=== PATIENT | male | born 1975 | race American Indian/Alaskan Native ===

== ENCOUNTER 2019-05-05 06:55 | Inpatient (IN) | payer OTHER ==
[2019-05-05] MEDS ORDERED: IBUPROFEN 800 MG TAB PO ONE (08:10)
--- NOTE | 2019-05-05 08:11 | Emergency Department Report ---
Minor Respiratory - HPI Chief Complaint: Fever Stated Complaint: FEVER UNABLE TO EAT Time Seen by Provider: 05/05/19 07:36 Duration: 5 Days Pain Location: Chest Severity: moderate Minor Respiratory: Yes Cough, Yes Fever (Chills), No Rhinorrhea, No Sore Throat, No Able to Tolerate Fluids, No Ear Pain, No Sick Contacts, No Hemoptysis, No Chest Pain, No Shortness of Breath Other History: Mr. Puentes is a 43-year-old -[place]ian male who comes to the ER reporting fever and chills since . He also endorses vomiting and poor p.o. intake. Patient also reports generalized weakness. He has a cough. He is ill appearing with bilateral conjunct. injectates on exam. He denies chest pain or shortness of breath. He denies any recent travel or known exposure to someone with illness. He is single, with both adult and young children. He has no history of HIV or other medical illness. He denies previous surgery. He denies taking any home medications daily. He has no primary care doctor. He does endorse cigarette smoking. His mother and father are alive and well. Patient symptoms began last he states that he thought he just had a cold from working outside at his job. However, the symptoms of gotten worse the fevers got more bothersome he says he will be fine 1 minute and then soaking wet and sweats the next. So he presented to the ER today. ED Review of Systems ROS: Stated complaint: FEVER UNABLE TO EAT Other details as noted in HPI Comment: All other systems reviewed and negative ED Past Medical Hx - Past Medical History Previous Medical History?: No - Surgical History Past Surgical History?: No - Family History Family history: no significant - Social History Smoking Status: Current Every Day Smoker Substance Use Type: None - Medications Home Medications: Home Medications Medication Instructions Recorded Confirmed Last Taken Type No Known Home Medications [No 05/05/19 05/05/19 Unknown History Reported Home Medications] Minor Respiratory Exam - Exam General: Vital signs noted. No distress. Alert and acting appropriately. HEENT: Yes Pharyngeal Erythema, Yes Rhinorrhea, Yes Conjuctival Injection, No Pharyngeal Exudates, No Moist Mucous Membranes, No Frontal Tenderness, No Maxillary Tenderness Ear: Neither TM Bulge, Neither TM Erythema, Neither EAC Pain, Neither EAC Discharge Neck: Yes Supple, No Adenopathy Lungs: Yes Good Air Exchange, Yes Ronchi, Yes Cough, No Wheezes, No Stridor, No Labored Respirations, No Retractions, No Use of Accessory Muscles, No Other Abnormal Lung Sounds Heart: Yes Regular, No Murmur Abdomen: Yes Normal Bowel Sounds, No Tenderness, No Peritoneal Signs Skin: No Rash, No Edema Neurologic: Alert and oriented, no deficits. Musculoskeletal: Unremarkable. ED Course Vital Signs 05/05/19 07:03 Temperature 98.9 F Pulse Rate 100 H Respiratory 16 Rate Blood Pressure 132/88 [Right] O2 Sat by Pulse 97 Oximetry ED Medical Decision Making - Lab Data Result diagrams: 05/05/19 09:04 05/05/19 09:04 - Radiology Data Radiology results: report reviewed, image reviewed interpreted by me: Multifocal pneumonia Multifocal pneumonia - Medical Decision Making Labs 05/05/19 05/05/19 05/05/19 09:04 09:04 Unknown WBC 7.4 RBC 4.55 Hgb 14.7 Hct 43.2 MCV 95 H MCH 32 MCHC 34 RDW 14.5 Plt Count 251 [place] % ([employer] Sodium 131 L Potassium 4.3 Chloride 93.7 L Carbon Dioxide 19 L Anion Gap 23 BUN 11 Creatinine 1.0 Estimated GFR > 60 BUN/Creatinine Ratio 11 Glucose 114 H Calcium 8.9 Total Bilirubin 0.60 AST 53 H ALT 46 Alkaline Phosphatase 109 Total Protein 7.6 Albumin 3.4 L Albumin/Globulin Ratio 0.8 Influenza A (Rapid) Negative Influenza B (Rapid) Negative Vital Signs 05/05/19 07:03 Temperature 98.9 F Pulse Rate 100 H Respiratory 16 Rate Blood Pressure 132/88 [Right] O2 Sat by Pulse 97 Oximetry Chest x-ray noted. Labs completed and noted. Influenza negative. Staffed patient with Dr. Lex HIGH. Patient has been medicated with normal saline per sepsis protocol. Rocephin and azithromycin to be given IV. Lactate is pending. Blood cultures and UA with culture are pending. Discussed case with Dr. Juan, patient will be admitted to the hospital for f urther evaluation and management of his multifocal pneumonia. Patient has been updated on plan of care and is in agreement. - Differential Diagnosis Rule out influenza, pneumonia Critical care attestation.: If time is entered above; I have spent that time in minutes in the direct care of this critically ill patient, excluding procedure time. ED Disposition Clinical Impression: Multifocal pneumonia Disposition: DC-09 OP ADMIT IP TO THIS HOSP Is pt being admited?: Yes Does the pt Need Aspirin: No Condition: Stable Instructions: Bacterial Pneumonia (ED) Time of Disposition: 10:03
--- NOTE | 2019-05-05 08:35 | XRay Report ---
CHEST 2 VIEWS INDICATION / CLINICAL INFORMATION: COUGH FEVER. COMPARISON: None available. FINDINGS: SUPPORT DEVICES: None. HEART / MEDIASTINUM: No significant abnormality. LUNGS / PLEURA: Airspace consolidation is identified in the right upper lobe and right lower lobe con sistent with multifocal pneumonia. No pneumothorax. ADDITIONAL FINDINGS: No significant additional findings. IMPRESSION: 1. Multifocal airspace pneumonia. Signer Name: Raffaele Burks MD Signed: 05/05/2019 8:31 AM Workstation Name: [id number]
[2019-05-05] MEDS ORDERED: SODIUM CHLORIDE 0.9% 1000 ML 1,000 ML IV ONE (08:38)
[2019-05-05 09:24] LABS: Hematocrit 43.2 % (35.5-45.6); Hemoglobin 14.7 gm/dl (11.8-15.2); Mean Corpuscular HGB Conc 34 % (32-34); Mean Corpuscular Volume 95 fl (84-94); Platelet Count 251 K/mm3 (140-440); Red Blood Count 4.55 M/mm3 (3.65-5.03); Red Cell Distribution Width 14.5 % (13.2-15.2)
[2019-05-05] MEDS ORDERED: AZITHROMYCIN 500 MG in SODIUM CHLORIDE 0.9% 250ML 250 ML IV ONE (09:30)
[2019-05-05 09:47] LABS: Alanine Aminotransferase 46 units/L (7-56); Albumin 3.4 g/dL (3.9-5); BUN/Creatinine Ratio 11; Blood Urea Nitrogen 11 mg/dL (9-20); Calcium 8.9 mg/dL (8.4-10.2); Hemolysis Index 16
[2019-05-05] MEDS ORDERED: SODIUM CHLORIDE 0.9% 1000 ML IV SOLN IV ONE (09:57)
[2019-05-05] MEDS ORDERED: cefTRIAXone/NS 1 GM/50 ML 1 GM/50 ML BAG IV ONE (09:59)
[2019-05-05 10:39] LABS: Basophils % (Manual) 0 % (0.0-1.8); Eosinophils % (Manual) 0 % (0.0-4.3); Macrocytosis Rare; Total Cells Counted 100
[2019-05-05 10:40] LABS: Platelet Estimate Appe
[2019-05-05 12:10] LABS: Bilirubin,Urine NEG (Negative); Blood,Urine NEG (Negative); Color,Urine Yellow (Yellow); Protein,Urine <15 mg/dL mg/dL (Negative); Urobilinogen,Urine < 2.0 mg/dL (<2.0)
--- NOTE | 2019-05-05 12:48 | History and Physical Report ---
History of Present Illness Date of examination: 05/05/19 Date of admission: 05/05/19 10:14 History of present illness: Mr. Puentes is a 43-year-old -Erit[place] male who comes to the ER reporting fever and chills since . He also endorses vomiting and poor p.o. intake. Patient also reports generalized weakness. He has a cough. He is ill appearing with bilateral conjunct. injectates on exam. He denies chest pain or shortness of breath. He denies any recent travel or known exposure to someone with illness. He is single, with both adult and young children. He horan s no history of HIV or other medical illness. He denies previous surgery. He denies taking any home medications daily. He has no primary care doctor. He does endorse cigarette smoking. His mother and father are alive and well. Patient symptoms began last he states that he thought he just had a cold from working outside at his job. However, the symptoms of gotten worse the fevers got more bothersome he says he will be fine 1 minute and then soaking wet and sweats the next. So he presented to the ER today. Medications and Allergies Allergies Allergy/AdvReac Type Severity Reaction Status Date / Time No Known Allergies Allergy Verified 09/11/13 02:12 Home Medications Medication Instructions Recorded Confirmed Last Taken Type No Known Home Medications [No 05/05/19 05/05/19 Unknown History Reported Home Medications] Exam - Constitutional Vitals: Temp Pulse Resp BP Pulse Ox 97.4 F L 70 16 115/71 98 05/05/19 12:02 05/05/19 12:02 05/05/19 12:02 05/05/19 12:02 05/05/19 12:02 Results - Labs CBC & Chem 7: 05/05/19 09:04 05/05/19 09:04 Labs: Abnormal lab results 05/05/19 05/05/19 Range/Units 09:04 09:04 MCV 95 H (84-94) fl Monocytes % (Manual) 18.0 H (0.0-7.3) % Monocytes # (Manual) 1.3 H (0.0-0.8) K/mm3 Sodium 131 L (137-145) mmol/L Chloride 93.7 L (98-107) mmol/L Carbon Dioxide 19 L (22-30) mmol/L Glucose 114 H (75-100) mg/dL AST 53 H (5-40) units/L Albumin 3.4 L (3.9-5) g/dL Assessment and Plan Multifocal PNA tobacco abuse
--- NOTE | 2019-05-05 15:06 | Consultation ---
History of Present Illness - Reason for Consult Consult date: 05/05/19 Multifocal pneumonia Requesting physician: BLAS MENDOZA - History of Present Illness The patient is a 43-year-old male who came into the emergency room with progressive symptoms of cough, shortness of breath and fever since last Saturday. Upon evaluation in the ER, he was noted to have multifocal pneumonia, especially on the right side. Started on empiric antibiotics and infectious diseases was consulted. He admits to smoking half a pack of cigarettes every day, occasional alcohol. Denies any recreational drugs. Last HIV test was about a year ago. Denies any recent travel, has been in [place]. Denies sick contacts. Cough has been mainly dry. Feeling slightly better since admission. Currently receiving ceftriaxone and azithromycin. Review of Systems: General: Positive for fever HEENT: no new visual disturbance Respiratory: Dry cough, shortness of breath, no hemoptysis Cardiovascular: No chest pain, syncope Gastrointestinal: No nausea, vomiting or diarrhea Genitourinary: No dysuria or hematuria Musculoskeletal: No new or worsening neck pain or back pain Neurologic: No headaches, seizures Hematologic: No easy bruising or bleeding Endocrine: No night sweats or acute weight loss Skin: negative for rash, jaundice Psychiatric: No suicidal or homicidal ideation Medications and Allergies Allergies Allergy/AdvReac Type Severity Reaction Status Date / Time No Known Allergies Allergy Verified 09/11/13 02:12 Home Medications Medication Instructions Recorded Confirmed Last Taken Type No Known Home Medications [No 05/05/19 05/05/19 Unknown History Reported Home Medications] Active Meds: Active Medications Azithromycin 500 mg/ Sodium (Chloride) 250 mls @ 250 mls/hr IV Q24HR [facility]; Protocol Ceftriaxone Sodium (Rocephin/Ns 2 Gm/100 Ml) 2 gm in 100 mls @ 200 mls/hr IV Q24HR JANEEN Physical Examination - Physical Exam Narrative exam: Physical Exam: Constitutional: Alert, cooperative. No acute distress Head, Ears, Nose: Normocephalic, atraumatic. External ears, nose normal Eyes: Conjunctivae/corneas clear. No icterus. No ptosis. Neck: Supple, no meningeal signs Oral: dentition fair, no thrush Cardiovascular: S1, S2 normal. Respiratory: Right-sided crackles GI: Soft, non-tender; bowel sounds normal. No peritoneal signs Musculoskeletal: No pedal edema, no cyanosis. Skin: No rash or abscess Hem/Lymphatic: No palpable cervical or supraclavicular nodes. No lymphangitis Psych: Mood ok. Affect normal Neurological: Awake, alert, oriented. No gross abnormality - Constitutional Vitals: Vital Signs Temp Pulse Resp BP Pulse Ox 97.4 F L 70 16 115/71 98 05/05/19 12:02 05/05/19 12:02 05/05/19 12:02 05/05/19 12:02 05/05/19 12:02 Temperature -Last 24 Hours Temperature 97.4 F Temperature 98.9 F Results - Labs CBC & Chem 7: 05/05/19 09:04 05/05/19 09:04 Labs: Abnormal lab results 05/05/19 05/05/19 Range/Units 09:04 09:04 MCV 95 H (84-94) fl Monocytes % (Manual) 18.0 H (0.0-7.3) % Monocytes # (Manual) 1.3 H (0.0-0.8) K/mm3 Sodium 131 L (137-145) mmol/L Chloride 93.7 L (98-107) mmol/L Carbon Dioxide 19 L (22-30) mmol/L Glucose 114 H (75-100) mg/dL AST 53 H (5-40) units/L Albumin 3.4 L (3.9-5) g/dL - Imaging and Cardiology Chest x-ray: report reviewed, image reviewed (Right upper and lower lobe infiltrates) Assessment and Plan Cultures: 05/05/2019 blood culture: In process Rapid flu test: Negative A/P: 43/M with #Right multifocal pneumonia: Recs: Continue empiric ceftriaxone and azithromycin Flu PCR, HIV ordered. Verbal consent for HIV obtained from patient, agreeable. Legionella urinary antigen ordered Eh Shin MD, FACP [facility] ([facility]) C: [phone] O: [phone] F: [phone]
[2019-05-05] MEDS ORDERED: HYDROcodone/ACETAMINOPHEN 5-325 MG TAB PO PRN (15:45)
[2019-05-05] MEDS ORDERED: hydrALAZINE 20 MG/1 ML INJ IV PRN (15:45)
[2019-05-05] MEDS ORDERED: METOCLOPRAMIDE 10 MG TAB PO PRN (15:51)
[2019-05-05] MEDS ORDERED: ONDANSETRON 4 MG/2 ML INJ IV PRN (15:51)
[2019-05-05] MEDS: ACETAMINOPHEN 325 MG TAB PO PRN (20:16)
[2019-05-05] MEDS: FAMOTIDINE 10 MG TAB PO SCH (21:51)
[2019-05-05] MEDS: guaiFENesin ER 600 MG TAB PO SCH (21:51)
[2019-05-05] MEDS: ENOXAPARIN 40 MG/0.4 ML INJ SUB-Q SCH (21:51)
[2019-05-05] MEDS: ZOLPIDEM 5 MG TAB PO PRN (21:51)
[2019-05-05] MEDS ORDERED: cefTRIAXone/NS 1 GM/50 ML 1 GM/50 ML BAG IV SCH (22:00)
[2019-05-06] MEDS ORDERED: SODIUM CHLORIDE 0.9% 1000 ML 1,000 ML IV ONE (06:02)
[2019-05-06] MEDS ORDERED: SODIUM CHLORIDE 0.9% 1000 ML 1,000 ML IV SCH (06:15)
[2019-05-06] MEDS: ACETAMINOPHEN 325 MG TAB PO PRN (06:23)
[2019-05-06] MEDS: FAMOTIDINE 10 MG TAB PO SCH ×2 (09:02→21:06)
[2019-05-06] MEDS: guaiFENesin ER 600 MG TAB PO SCH ×2 (09:02→21:06)
[2019-05-06] MEDS: cefTRIAXone/NS 2 GM/100 ML 2 GM/100 ML BAG IV SCH (09:03)
--- NOTE | 2019-05-06 10:19 | Progress Note ---
Assessment and Plan Cultures: 05/05/2019 blood culture: no growth thus far Rapid flu test: Negative Influenza PCR: negative A/P: 43/M with #Right multifocal pneumonia. not producing sputum, no unable to get sputum cul ture. Recs: Continue empiric ceftriaxone and azithromycin, Day 2 F/u HIV, legionella urinary antigen If afebrile for >24 hours, may discharge tomorrow on PO Ceftin 500 mg BID x 5 more days Eh Shin MD, FACP [facility] ([facility]) C: [phone] O: [phone] F: [phone] Subjective Date of service: 05/06/19 Interval history: Fever +. Still mild shortness of breath and dry cough but overall he thinks he is better. Objective - Exam Narrative Exam: Physical Exam: Constitutional: Alert, cooperative. No acute distress Head, Ears, Nose: Normocephalic, atraumatic. External ears, nose normal Eyes: Conjunctivae/corneas clear. No icterus. No ptosis. Neck: Supple, no meningeal signs Cardiovascular: S1, S2 normal. Respiratory: Right-sided crackles GI: Soft, non-tender; bowel sounds normal. No peritoneal signs Musculoskeletal: No pedal edema, no cyanosis. Skin: No rash or abscess Hem/Lymphatic: No palpable cervical or supraclavicular nodes. No lymphangitis Psych: Mood ok. Affect normal Neurological: Awake, alert, oriented. No gross abnormality - Constitutional Vitals: Vital Signs Temp Pulse Resp BP Pulse Ox 102.5 F H 91 H 20 131/88 95 05/06/19 05:17 05/06/19 05:17 05/06/19 05:17 05/06/19 05:17 05/06/19 05:17 Temperature -Last 24 Hours Temperature 102.5 F Temperature 99.0 F Temperature 98.5 F Temperature 97.4 F - Labs CBC & Chem 7: 05/05/19 09:04 05/05/19 09:04 Labs: Abnormal lab results 05/05/19 Range/Units 09:04 Monocytes % (Manual) 18.0 H (0.0-7.3) % Monocytes # (Manual) 1.3 H (0.0-0.8) K/mm3
[2019-05-06] MEDS ORDERED: FLU VACC QUAD 2019-20 (3 YR UP)/PF 60 MCG/0.5 ML SYRINGE IM ONE (12:00)
[2019-05-06] MEDS: AZITHROMYCIN 500 MG in SODIUM CHLORIDE 0.9% 250ML 250 ML IV SCH (12:10)
--- NOTE | 2019-05-06 12:17 | Progress Note ---
Subjective Date of service: 05/06/19 Interval history: Patient seen and examined c/o dry cough, spiked fever this am Objective - Constitutional Vitals: Vital Signs - 12hr 05/06/19 05/06/19 01:00 05:17 Temperature 102.5 F H Pulse Rate 91 H Pulse Rate [ 72 Right Brachial] Respiratory 20 20 Rate Blood Pressure 131/88 O2 Sat by Pulse 97 95 Oximetry - Labs CBC & Chem 7: 05/05/19 09:04 05/05/19 09:04
[2019-05-06] MEDS: ENOXAPARIN 40 MG/0.4 ML INJ SUB-Q SCH (21:05)
[2019-05-06] MEDS: ZOLPIDEM 5 MG TAB PO PRN (21:09)
[2019-05-07] MEDS: cefTRIAXone/NS 2 GM/100 ML 2 GM/100 ML BAG IV SCH (09:29)
[2019-05-07] MEDS: guaiFENesin ER 600 MG TAB PO SCH (09:30)
[2019-05-07] MEDS: FAMOTIDINE 10 MG TAB PO SCH (09:30)
[2019-05-07] MEDS: AZITHROMYCIN 500 MG in SODIUM CHLORIDE 0.9% 250ML 250 ML IV SCH (09:30)
--- NOTE | 2019-05-07 10:34 | Discharge Summary ---
Providers - Providers Date of Admission: 05/06/19 11:00 Date of discharge: 05/07/19 Attending physician: BLAS MENDOZA 05/05/19 12:48 Consult to Physician [CONS] Routine Comment: Consulting Provider: HOLLIE TEE Physician Instructions: Reason For Exam: Multifocal PNA [facility] Hospitalization Condition: Stable Hospital course: Discharge diagnosis: Multifocal PNA tobacco abuse Disposition: DC-01 TO HOME OR SELFCARE Time spent for discharge: 34 minutes Core Measure Documentation - Palliative Care Palliative Care/ Comfort Measures: Not Applicable - Core Measures Any of the following diagnoses?: none Exam - Constitutional Vitals: Temp Pulse Resp BP Pulse Ox 98.8 F 66 20 149/94 98 05/07/19 05:15 05/07/19 05:15 05/07/19 05:15 05/07/19 05:15 05/07/19 05:15 General appearance: Present: no acute distress, well-nourished - EENT Eyes: Present: PERRL ENT: hearing intact, clear oral mucosa - Neck Neck: Present: supple, normal ROM - Respiratory Respiratory effort: normal Respiratory: bilateral: rales - Cardiovascular Heart Sounds: Present: S1 & S2. Absent: rub, click - Extremities Extremities: pulses symmetrical, No edema Peripheral Pulses: within normal limits - Abdominal General gastrointestinal: Present: soft, non-tender, non-distended, normal bowel sounds - Integumentary Integumentary: Present: clear, warm, dry - Musculoskeletal Musculoskeletal: gait normal, strength equal bilaterally - Psychiatric Psychiatric: appropriate mood/affect, intact judgment & insight - Neurologic Neurologic: CNII-XII intact, moves all extremities Plan Activity: advance as tolerated Weight Bearing Status: Weight Bear as Tolerated Diet: low fat, low salt Follow up with: SUZANNA SHAY MD [Primary Care Provider] - 7 Days Prescriptions: cefUROXime [Ceftin] 500 mg PO Q12H #10 tablet guaiFENesin ER [Mucinex ER] 600 mg PO BID #14 tablet
--- NOTE | 2019-05-07 11:50 | Progress Note ---
Assessment and Plan Cultures: 05/05/2019 blood culture: no growth thus far Rapid flu test: Negative Influenza PCR: negative A/P: 43/M with #Right multifocal pneumonia. not producing sputum, no unable to get sputum cul ture. Recs: OK for discharge on PO Ceftin 500 mg BID x 5 more days smoking cessation advised to patient d/w Dr. Braxton Shin MD, FACP [facility] ([facility]) C: [phone] O: [phone] F: [phone] Subjective Date of service: 05/07/19 Interval history: No fever. Breathing well. Overall feels great, wants to go home. Objective - Exam Narrative Exam: Physical Exam: Constitutional: Alert, cooperative. No acute distress Head, Ears, Nose: Normocephalic, atraumatic. External ears, nose normal Eyes: Conjunctivae/corneas clear. No icterus. No ptosis. Neck: Supple, no meningeal signs Cardiovascular: S1, S2 normal Respiratory: mainly clear, few rhonchi + GI: Soft, non-tender; bowel sounds normal. No peritoneal signs Musculoskeletal: No pedal edema, no cyanosis. Skin: No rash or abscess Hem/Lymphatic: No palpable cervical or supraclavicular nodes. No lymphangitis Psych: Mood ok. Affect normal Neurological: Awake, alert, oriented. No gross abnormality - Constitutional Vitals: Vital Signs Temp Pulse Resp BP Pulse Ox 98.8 F 66 20 149/94 98 05/07/19 05:15 05/07/19 05:15 05/07/19 05:15 05/07/19 05:15 05/07/19 05:15 Temperature -Last 24 Hours Temperature 98.8 F Temperature 98.7 F Temperature 97.5 F Temperature 98.0 F - Labs CBC & Chem 7: 05/05/19 09:04 05/05/19 09:04
[2019-05-07 12:16] VITALS: BP 147/89
== END 2019-05-07 12:58 | disposition home or self-care (01) | DRG 195 ==
LOC: ED 06:55 → 3A 10:14 → OBSVTOIN 05-06 11:00
PROVIDERS: ADMIT Internal Medicine; ATTEND Internal Medicine
DX: J18.9 Pneumonia, unspecified organism (principal); R50.9 Fever, unspecified; F17.210 Nicotine dependence, cigarettes, uncomplicated; Z71.6 Tobacco abuse counseling
CPT/HCPCS: 36415; 71046; 80053; 81001; 82140; 85007; 85025; 86689; 87040; 87400; 87449; 90686; 99406; G0378; 87502; J0456; J0696; J1650; J7030; J7050

== ENCOUNTER 2021-11-22 21:05 | Emergency (ER) | payer OTHER ==
[2021-11-22 21:30] VITALS: BP 136/93
--- NOTE | 2021-11-23 11:47 | Electrocardiograph Report ---
[facility] Test Date: 2021-11-22 Test Time: 21:35:32 Pat Name: GLENDY GASTON Department: Room: Gender: M Public Service Administrator: TECH : 1975 Requested By: YADY ZUÑIGA Order Number: [id number] Reading MD: Raimundo Lorenzo Measurements Intervals [place] Rate: 88 P: 47 [place]: 180 QRS: -4 QRSD: 81 T: 30 QT: 344 QTc: 416 Interpretive Statements Sinus rhythm Probable left ventricular hypertrophy Anterior Q waves, possibly due to LVH No previous ECG available for comparison Electronically Signed On 11-23-2021 11:47:15 EDT by Raimundo Lorenzo
== END 2021-11-23 04:30 | disposition left against medical advice (07) ==
LOC: ED 21:05
DX: I10 Essential (primary) hypertension (principal); R07.89 Other chest pain; Z53.21 Procedure and treatment not carried out due to patient leaving prior to being seen by health care provider
CPT/HCPCS: 93005